=== PATIENT | female | born 1980 | race Caucasian/White ===

== ENCOUNTER 2021-03-02 10:21 | Emergency (ER) | payer BC, SELFPAY ==
[2021-03-02 10:29] VITALS: BP 120/59; PULSE 93; RESP 17; TEMP 36.2; O2SAT 99
== END 2021-03-02 11:21 | disposition left against medical advice (07) ==
PROVIDERS: Emergency Provider Emergency Medicine
DX: Z53.21 Procedure and treatment not carried out due to patient leaving prior to being seen by health care provider (principal)
CPT/HCPCS: 99281